=== PATIENT | female | born 1990 | race Caucasian/White ===

== ENCOUNTER 2016-12-11 11:31 | Emergency (ER) | payer OTHER ==
[~2016-12-11] VITALS: Ht 175.3 cm; Wt 127.3 kg
[~2016-12-11 11:31] MED LIST: PREN-66 PO
[2016-12-11] MEDS ORDERED: VORT10TA PO (11:46)
[2016-12-11 14:42] LABS: GLUCOSE,POINT OF CARE 87 MG/DL (70-110)
[2016-12-11 14:55] VITALS: BP 145/88
[2016-12-11 15:07] LABS: GLUCOSE,POINT OF CARE 90 MG/DL (70-110)
== END 2016-12-11 15:05 | disposition home or self-care (01) ==
LOC: EMS 11:33
DX: R21 Rash and other nonspecific skin eruption (principal); R79.89 Other specified abnormal findings of blood chemistry
CPT/HCPCS: 82948; 82962; 99282

== ENCOUNTER 2018-07-22 17:07 | Emergency (ER) | payer OTHER ==
[~2018-07-22] VITALS: Ht 175.3 cm; Wt 118.2 kg
[~2018-07-22 17:07] MED LIST changes: +ACET-66 PO; -PREN-66 PO
[2018-07-22] MEDS ORDERED: OSEL75 PO (17:35)
[2018-07-22 18:23] LABS: APPEARANCE,URINE CLOUDY (CLEAR); BILIRUBIN,URINE NEGATIVE (NEGATIVE); GLUCOSE, URINE (UA) NEGATIVE (NEGATIVE); KETONES,URINE NEGATIVE (NEGATIVE); LEUKOCYTE ESTERASE ,URINE NEGATIVE (NEGATIVE); NITRATE,URINE NEGATIVE (NEGATIVE); OCCULT BLOOD,URINE NEGATIVE (NEGATIVE); PH,URINE 7.5 (5.0-8.0); PROTEIN,URINE NEGATIVE (NEGATIVE)
[2018-07-22] MEDS ORDERED: KETOROLAC TROMETHAMINE 60 MG/2 ML VIAL IM ONE (18:45)
[2018-07-22] MEDS ORDERED: PredniSONE 20 MG TABLET PO ONE (18:45)
[2018-07-22] MEDS ORDERED: DiphenhydrAMINE HCL 25 MG CAPSULE PO ONE (18:45)
[2018-07-22 21:45] VITALS: BP 138/77
== END 2018-07-22 22:20 | disposition home or self-care (01) ==
LOC: EMS 17:08
DX: J06.9 Acute upper respiratory infection, unspecified (principal)
CPT/HCPCS: 71045; 81003; 84703; 96372; 99284; J1885

== ENCOUNTER 2020-04-18 16:47 | Emergency (ER) | payer OTHER ==
[~2020-04-18] VITALS: Ht 180.3 cm; Wt 118.2 kg
[2020-04-18] MEDS ORDERED: KETOROLAC TROMETHAMINE 30 MG/ML VIAL IM ONE (17:45)
[2020-04-18] MEDS ORDERED: LIDOCAINE 5% TRANSDERMAL PATCH TD ONE (17:45)
[2020-04-18] MEDS ORDERED: ACETAMINOPHEN 500 MG TABLET PO ONE (17:45)
[2020-04-18 17:56] LABS: ANION GAP 8 mmol/L (8-16); CALCIUM, TOTAL 9.9 mg/dL (8.8-10.5); CARBON DIOXIDE 26 mmol/L (22-29); CHLORIDE 101 mmol/L (98-107); CREATININE 0.86 mg/dL (0.60-1.30); GLOMERULAR FILTR. RATE CALC > 60 mL/min (>60); GLUCOSE,RANDOM 100 mg/dL (70-110); POTASSIUM 4.7 mmol/L (3.5-5.1); SODIUM SERUM 135 mmol/L (136-145); UREA NITROGEN, BLOOD 14 mg/dL (7-18)
[2020-04-18 17:58] LABS: BASOPHILS % (AUTO) 1.2 % (0.0-2.0); EOSINOPHILS % (AUTO) 1.8 % (1.0-6.0); HEMATOCRIT 37.8 % (36-46); HEMOGLOBIN 12.3 g/dL (12.0-16.0); LYMPHOCYTES # (AUTO) 4.5 K/uL (1.0-4.8); LYMPHOCYTES % (AUTO) 38.2 % (22.0-44.0); MEAN CORPUSCULAR HEMOGLOBIN 26.1 pg (26.0-34.0); MEAN CORPUSCULAR HGB CONC 32.5 G/dL (31.0-37.0); MEAN CORPUSCULAR VOLUME 80 fL (80-100); MONOCYTES # (AUTO) 0.8 K/uL (0.1-1.0); MONOCYTES % (AUTO) 6.4 % (2.0-9.0); NEUTROPHILS # (AUTO) 6.2 K/uL (1.8-7.7); NEUTROPHILS % (AUTO) 52.4 % (40.0-70.0); PLATELET COUNT (AUTO) 301 K/uL (150-450); RED BLOOD CELL COUNT(AUTO) 4.71 MIL/uL (4.00-5.20); RED CELL DISTRIBUTION WIDTH 13.3 % (11.5-14.5)
[2020-04-18 17:59] LABS: COVID AG,FIA SOURCE NASOPHARYNGEAL
[2020-04-18 18:23] LABS: ALANINE AMINOTRANSFERASE 22 U/L (12-78); ALBUMIN 3.5 g/dL (3.4-5.0); ALKALINE PHOSPHATASE 106 U/L (46-116); ASPARTATE AMINOTRANSFERASE 31 U/L (15-37); BILIRUBIN,TOTAL 0.2 mg/dL (0.1-1.0); CREATINE KINASE, TOTAL ONLY 263 U/L (26-192); HCG,QUANTITATIVE < 1 mIU/mL (0-6); TOTAL PROTEIN, SERUM 7.7 g/dL (6.4-8.2)
[2020-04-18 20:15] VITALS: BP 111/65
== END 2020-04-18 20:15 | disposition home or self-care (01) ==
LOC: EMS 16:51
DX: R07.89 Other chest pain (principal); F41.9 Anxiety disorder, unspecified; F32.9 Major depressive disorder, single episode, unspecified; F12.90 Cannabis use, unspecified, uncomplicated; Z20.828 Contact with and (suspected) exposure to other viral communicable diseases
CPT/HCPCS: 36415; 71045; 80053; 82550; 82962; 84484; 84702; 85025; 87426; 93005; 96372; 99285; J1885

== ENCOUNTER 2020-05-24 10:17 | Emergency (ER) | payer MEDICAID, OTHER ==
[~2020-05-24] VITALS: Ht 175.3 cm; Wt 118.2 kg
[~2020-05-24 10:17] MED LIST changes: +ACET-3385 PO; -ACET-66 PO
[2020-05-24] MEDS ORDERED: BCP PO (10:26)
[2020-05-24 12:15] VITALS: BP 114/63
== END 2020-05-24 12:50 | disposition home or self-care (01) ==
LOC: EMS 10:33
DX: N63.0 Unspecified lump in unspecified breast (principal); F41.9 Anxiety disorder, unspecified; F12.90 Cannabis use, unspecified, uncomplicated
CPT/HCPCS: Z7502

== ENCOUNTER 2021-05-24 15:46 | Emergency (ER) | payer MEDICAID ==
[~2021-05-24] VITALS: Ht 175.3 cm; Wt 120.0 kg
[~2021-05-24 15:46] MED LIST changes: -ACET-3385 PO; +BCP PO
[2021-05-24 16:16] VITALS: BP 137/79
[2021-05-24 17:40] LABS: COVID AG,FIA SOURCE NASOPHARYNGEAL
[2021-05-24 20:05] LABS: INFLUENZA TYPE A NEGATIVE FOR TYPE A (NEGATIVE); INFLUENZA TYPE B NEGATIVE FOR TYPE B (NEGATIVE)
== END 2021-05-24 19:33 | disposition home or self-care (01) ==
LOC: EMS 15:46
DX: R51.9 Headache, unspecified (principal); R09.81 Nasal congestion; M79.10 Myalgia, unspecified site; Z20.822 Contact with and (suspected) exposure to COVID-19
CPT/HCPCS: 87804; 99283

== ENCOUNTER 2021-08-26 06:03 | Emergency (ER) | payer MEDICAID ==
[~2021-08-26] VITALS: Ht 177.8 cm; Wt 127.3 kg
[2021-08-26 06:24] VITALS: BP 136/76
== END 2021-08-26 06:45 | disposition home or self-care (01) ==
LOC: EMS 06:04
DX: S00.532A Contusion of oral cavity, initial encounter (principal); G47.30 Sleep apnea, unspecified; F12.90 Cannabis use, unspecified, uncomplicated; F41.9 Anxiety disorder, unspecified; F32.9 Major depressive disorder, single episode, unspecified; Z90.710 Acquired absence of both cervix and uterus; X58.XXXA Exposure to other specified factors, initial encounter; Y93.89 Activity, other specified; Y92.89 Other specified places as the place of occurrence of the external cause; Y99.8 Other external cause status
CPT/HCPCS: 99281; Z7502

== ENCOUNTER 2021-11-04 06:33 | Emergency (ER) | payer MEDICAID ==
[~2021-11-04] VITALS: Ht 180.3 cm; Wt 127.3 kg
[2021-11-04 07:50] LABS: COVID AG,FIA SOURCE NASOPHARYNGEAL
[2021-11-04 08:25] VITALS: BP 120/82
== END 2021-11-04 08:28 | disposition home or self-care (01) ==
LOC: EMS 06:33
DX: R51.9 Headache, unspecified (principal); Z20.822 Contact with and (suspected) exposure to COVID-19; F41.9 Anxiety disorder, unspecified; F31.9 Bipolar disorder, unspecified; F10.20 Alcohol dependence, uncomplicated; F12.90 Cannabis use, unspecified, uncomplicated; Z90.710 Acquired absence of both cervix and uterus
CPT/HCPCS: 99283

== ENCOUNTER 2021-12-04 06:11 | Emergency (ER) | payer MEDICAID ==
[~2021-12-04] VITALS: Ht 175.3 cm; Wt 131.8 kg
[2021-12-04 07:02] LABS: COVID AG,FIA SOURCE NASAL SWAB
[2021-12-04 07:40] VITALS: BP 135/85
[2021-12-04 07:42] LABS: INFLUENZA TYPE A NEGATIVE FOR TYPE A (NEGATIVE); INFLUENZA TYPE B NEGATIVE FOR TYPE B (NEGATIVE)
== END 2021-12-04 08:30 | disposition home or self-care (01) ==
LOC: EMS 06:13
DX: J06.9 Acute upper respiratory infection, unspecified (principal); F41.9 Anxiety disorder, unspecified; F32.A Depression, unspecified; R11.2 Nausea with vomiting, unspecified; F12.90 Cannabis use, unspecified, uncomplicated; Z85.41 Personal history of malignant neoplasm of cervix uteri; Z90.710 Acquired absence of both cervix and uterus; Z98.890 Other specified postprocedural states; Z20.822 Contact with and (suspected) exposure to COVID-19
CPT/HCPCS: 87804; 99283

== ENCOUNTER 2023-06-29 08:21 | Emergency (ER) | payer MEDICAID ==
[~2023-06-29] VITALS: Ht 172.7 cm; Wt 127.3 kg
[2023-06-29 08:35] VITALS: TEMP 98.2
[2023-06-29 09:55] LABS: INFLUENZA A-RTPCR,COMBO NEGATIVE (NEGATIVE); INFLUENZA B-RTPCR,COMBO NEGATIVE (NEGATIVE); RESPIRATORY SYNCYTIAL VRS-PCR NEGATIVE (NEGATIVE); SARS COVID19 RTPCR, COMBO NEGATIVE (NEGATIVE)
[2023-06-29 11:30] VITALS: BP 135/82; PULSE 85; RESP 18
== END 2023-06-29 11:43 | disposition home or self-care (01) ==
LOC: EMS 08:24
DX: J06.9 Acute upper respiratory infection, unspecified (principal); F41.9 Anxiety disorder, unspecified; F32.A Depression, unspecified; F12.90 Cannabis use, unspecified, uncomplicated; Z90.710 Acquired absence of both cervix and uterus; Z98.890 Other specified postprocedural states; Z20.822 Contact with and (suspected) exposure to COVID-19
CPT/HCPCS: 99283; 0241U